=== PATIENT | female | born 2000 | race Caucasian/White ===

== ENCOUNTER 2021-08-16 19:52 | Emergency (ER) | payer OTHER, SELFPAY ==
[2021-08-16 19:54] VITALS: BP 145/85; PULSE 104; RESP 18; TEMP 36.6; O2SAT 100
--- NOTE | 2021-08-16 20:14 | ED.ANXIETY ---
HPI - Anxiety General Chief Complaint: Anxiety Stated Complaint: ate edible gummies, having anxiety Time Seen by Provider: 08/16/21 19:55 Source: patient Mode of arrival: EMS Limitations: no limitations History of Present Illness HPI narrative: 20-year-old with no major medical problems here with complaints of having anxiety symptoms. Patient states that she ate edibles soon after she started feeling anxious. She denied any chest pain or shortness of breath. MD complaint: anxiety and heart racing Onset (ago): minute(s) (20) Symptoms: extremity numbness/tingling Severity: moderate Quality: improving Place: home History of similar episodes: No Provoking factors: none known Relieving factors: nothing Exacerbating factors: nothing Associated symptoms: denies other symptoms Review of Systems Review of Systems: All systems reviewed & are unremarkable except as noted in HPI and below Constitutional: Constitutional: Reports no additional constitutional complaints Eyes: Eyes: Reports no additional eye complaints ENT: Reports system reviewed and no additional complaints, except as documented Cardiovascular: Cardiovascular: Reports no additional cardiovascular complaints Respiratory: Respiratory: Reports no additional respiratory complaints Gastrointestinal: Gastrointestinal: Reports no additional gastrointestinal complaints Musculoskeletal: Musculoskeletal: Reports no additional musculoskeletal complaints Integumentary/Breasts: Skin/Breast: Reports system reviewed and no additional complaints, except as docu Neurologic: Reports system reviewed and no additional complaints, except as documented Psychiatric: Psychiatric: Reports as per HPI [facility] Social History Social History Substance use type: marijuana Exam Narrative: GENERAL: Well-appearing, well-nourished, and in no acute distress. HEAD: Normocephalic, atraumatic. EYES: PERRLA and EOMI. ENT: Nares clear, no rhinorrhea or epistaxis. Mucous membranes moist. NECK: Supple. CHEST: Clear to auscultation. No respiratory distress. HEART: Regular rate and rhythm. No murmur heard. Normal peripheral pulses. ABDOMEN: Soft, nontender, nondistended, normal active bowel sounds. EXTREMITIES: Normal range of motion. No edema. SKIN: Warm, dry, no rash. NEURO: No focal deficits. Alert and oriented x3. PSYCH: Normal mood and affect. Course Course Emergency Course: Patient feeling much comfortable once she arrived to the ER. Vital Signs Vital signs: Vital Signs Temperature 36.6 C 08/16/21 19:54 Pulse Rate 104 H 08/16/21 19:54 Respiratory Rate 18 08/16/21 19:54 Blood Pressure 145/85 H 08/16/21 19:54 Pulse Oximetry 100 08/16/21 19:54 Temperature 36.6 C 08/16/21 19:54 Pulse Rate 104 H 08/16/21 19:54 Respiratory Rate 18 08/16/21 19:54 Blood Pressure 145/85 H 08/16/21 19:54 Pulse Oximetry 100 08/16/21 19:54 Discharge Plan Discharge Clinical Impression: Acute anxiety Patient Disposition: Home, Self-Care Condition: Stable Instructions: Antibiotic Form, Anxiety (ED) Additional Instructions: stay away from gummies drink plenty of fluid and rest Time of Disposition: 20:43
[2021-08-16 21:07] VITALS: BP 144/76; PULSE 96; RESP 18; O2SAT 99
== END 2021-08-16 21:07 | disposition home or self-care (01) ==
PROVIDERS: Emergency Provider Family Medicine
DX: F41.9 Anxiety disorder, unspecified (principal)
CPT/HCPCS: 99281

== ENCOUNTER 2021-10-02 15:13 | Emergency (ER) | payer OTHER, SELFPAY ==
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
[2021-10-02 15:36] VITALS: BP 137/90; PULSE 94; RESP 16; TEMP 36.4; O2SAT 99
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
[2021-10-02 19:20] VITALS: BP 155/106; PULSE 90; RESP 16; O2SAT 96
--- NOTE | 2021-10-02 19:22 | PC.NURSE ---
Pt to XY via wheelchair at this time.
[2021-10-02] MEDS: ONDANSETRON INJ 4 MG/2 ML VIAL IV PUSH (19:46)
[2021-10-02] MEDS: MORPHINE SULFATE (*CRX) 2 MG/ML INJ IV PUSH (19:48)
[2021-10-02 20:03] LABS: Basophils Percent Auto 0.2 % (0.2-1.2); Eosinophils Absolute Auto 0.2 K/mm3 (0-0.3); Eosinophils Percent Auto 1.7 % (0-4.4); Hematocrit 35.8 % (37.0-47.0); Hemoglobin 12.2 g/dL (12.0-15.0); Immature Granulocyte Absolute 0.05 K/mm3 (0.00-0.031); Immature Granulocyte Percent A 0.4 % (0-0.5); Lymphocytes Percent Auto 20.7 % (18.3-44.2); Mean Corpuscular HGB Conc 34.1 g/dl (32-36); Mean Corpuscular Hemoglobin 31.2 pg (26-34); Mean Corpuscular Volume 91.6 fl (80-100); Monocytes Absolute Auto 0.8 K/mm3 (0.1-0.6); Monocytes Percent Auto 6.5 % (2.6-8.5); Neutrophils Absolute Auto 8.5 K/mm3 (1.3-6.7); Neutrophils Percent Auto 70.5 % (45.5-73.1); Platelet Count Result 344 k/mm3 (150-375); Red Blood Count 3.91 M/mm3 (4.2-5.4); Red Cell Distribution Width 12.4 % (11.5-14.5); White Blood Count 12.1 K/mm3 (4.5-10.0)
[2021-10-02 20:14] LABS: Alanine Aminotransferase 29 U/L (4-35); Albumin Level 4.5 g/dL (3.5-5.1); Alkaline Phosphatase 52 U/L (38-126); Anion Gap 9 mmol/L (8-16); Aspartate Amino Transferase 28 U/L (14-36); Bilirubin,Total 0.3 mg/dL (0.2-1.3); Blood Urea Nitrogen 9 mg/dL (7-17); Calcium 9.3 mg/dL (8.4-10.2); Carbon Dioxide 26 mmol/L (22-30); Chloride 100 mmol/L (98-107); Estimated CRCL calculation 169 ml/min; Estimated Glomerular Filt Rate > 60; Glucose 108 mg/dL (65-110); Potassium 3.8 mmol/L (3.4-5.0); Sodium 135 mmol/L (137-145)
--- NOTE | 2021-10-02 20:17 | PC.NURSE ---
Pt to CT via wheelchair at this time.
[2021-10-02 20:22] LABS: Partial Thromboplastin Time 27.2 SECONDS (22.3-36.8); Prothrombin Time 12.6 Seconds (11.1-14.7)
[2021-10-02 21:19] VITALS: BP 131/88; PULSE 81; RESP 16; O2SAT 98
== END 2021-10-02 21:22 | disposition home or self-care (01) ==
PROVIDERS: Physician Assistant; Emergency Provider Emergency Medicine
DX: R07.89 Other chest pain (principal); J45.909 Unspecified asthma, uncomplicated; V49.40XA Driver injured in collision with unspecified motor vehicles in traffic accident, initial encounter
CPT/HCPCS: 36415; 71046; 71100; 71110; 74177; 80053; 81025; 85025; 85610; 85730; 96374; 96375; 99284; J2270; J2405; Q9967